=== PATIENT | female | born 1970 | race Caucasian/White ===

== ENCOUNTER 2024-01-30 01:09 | Inpatient (IN) | payer SELFPAY ==
[2024-01-29] MEDS: LEVOPHED 250 IV (23:40)
[2024-01-29 23:43] VITALS: BP 73/44
[2024-01-29 23:45] VITALS: BP 75/45
[2024-01-29 23:47] VITALS: BP 59/36
[2024-01-29 23:50] VITALS: BP 79/51
[2024-01-29 23:55] VITALS: BP 80/47
[2024-01-29 23:55] LABS: B.E. -21.9 mmol/L; O2 Saturation % 98.9 % (94-98); PCO2 60 mmHg (32-35); PO2 130 mmHg (83-108)
[2024-01-29 23:56] LABS: O2 Therapy 100%; pH 6.87 (7.35-7.45)
[2024-01-29 23:58] LABS: Urine Albumin 3+ (Neg - Trace); Urine Bilirubin Negative (Negative); Urine Character Slightly Cloudy (Clear); Urine Color Yellow; Urine Glucose Trace (Negative); Urine Ketone Trace (Negative); Urine Leukocyte Trace (Negative); Urine Nitrite Negative (Negative); Urine Occult Blood 3+ (Negative); Urine Urobilinogen Negative (Neg - 1+)
[2024-01-30] VITALS (30 sets, daily range): BP systolic 52–156; BP diastolic 23–142; BMI 20.2
[2024-01-30 00:03] LABS: Hemoglobin 9.7 g/dL (12.0-16.0); Mean Corp Hgb Conc. 34.6 g/dL (33.0-37.0); Mean Corpuscular Hgb 33.2 pg (27.0-31.0); Mean Corpuscular Volume 95.9 fL (81.0-99.0); Mean Platelet Volume 11.1 fL (7.4-10.4); Platelet Count 68 10^3/uL (130-400); Red Blood Cell Count 2.92 10^6/uL (4.20-5.40); Red Cell Dist. Width 12.2 % (11.5-14.5); White Blood Cell Count 2.2 10^3/uL (4.8-10.8)
[2024-01-30 00:06] LABS: Urine Bacteria Many (Negative); Urine Hyaline Cast 0-2 /LPF (0-2); Urine Squamous Cell 0-2 /LPF (Few)
--- NOTE | 2024-01-30 00:11 | ED.GENMED ---
History of Present Illness
General
Chief Complaint: CODE
Source: family (I have spoken with mother who arrives to the ED.) and ambulance crew
Exam Limitations: clinical condition
Time Seen by Provider: 01/29/24 23:43
History of Present Illness
History of Present Illness:
This is a 53-year-old woman with no significant past medical history, takes no medications on a daily basis, according to mom has been sick with URI symptoms, high fever, generalized weakness for the past 5 days. She has had a few loose stools,
poor oral intake. Mom has had similar URI symptoms but not to this severity. Patient has had progressive weakness and tonight collapsed, unresponsive and upon EMS arrival patient was in cardiac arrest with initial rhythm of asystole. CPR
reportedly initially begun by , ACLS protocol upon EMS arrival, IV established and after 1 mg of IV epinephrine ROSC achieved and has been persistent with sinus tachycardia with profound persistent hypotension. Patient has received 280 mcg
of push dose epinephrine prehospital as well as 1.5 L normal saline solution fluid bolus.
She remains obtunded/unresponsive. Orally intubated in the field.
Past History
Past History
ED Past Medical History: None
ED Past Surgical History: None
Social History
Tobacco: Non-smoker
Alcohol: Occasional
Drug: None
Personal:
Living: with family
Family History
Family History: Other (Noncontributory. No significant family past medical history.)
Phy Exam
Physical Exam
Physical Exam:
GENERAL: 53-year-old woman, small build, appears her stated age arrives via EMS, orally intubated. Obtunded. GCS of 3.
EYE: pupils equal and reactive. anicteric
NECK: Supple, no adenopathy.
ENT: Orally intubated.
CARDIAC: Regular rhythm, tachycardic at 140. no murmur.
LUNGS: Orally intubated, bagged�transition to assist-control ventilator. Scant rales right base otherwise lungs are clear to auscultation and equal breath sounds bilaterally.
ABDOMEN: Soft, nondistended, no palpable masses.
NEUROLOGICAL: Obtunded, GCS of 3. No spontaneous extremity movement.
SKIN: Warm and dry, normal color, skin intact. No rash.
MUSCULOSKELETAL: No C/C/E. Thready peripheral pulses. Palpable central pulses, equal bilaterally.
PSYCH: Not obtainable.
Sepsis
Sepsis Screening
Sepsis Assessment: Septic Shock
Sepsis Screening: Lactate >/=4mmol/L, Hypotension, ARF-Creatinine >2.0, Worsening O2 Saturation, Need for mechanical ventilation or BiPAP, Sustained Hypotension-SBP <90,MAP<65, or SBP decrease 40mmHg or more and Vasopressor support required
Sepsis Screen
Sepsis Screen: Septic Shock
Date: 01/30/24
Time: 06:08
Course
Orders/Labs/Results
Orders:
Orders
01/29/24 23:36
Cardiac Monitoring- Treatment ONCE
EKG- Treatment ONCE
Straight cath- Treatment ONCE
Pulse Ox/cont/shift [RESP] Urgent
Quantity: 1
Special Instructions: CONTINUOUS
01/29/24 23:37
NORepinephrine 4 MG/250 ML [Levophed] 4 mg in 250 ml .ROUTE .STK-MED
01/29/24 23:40
NORepinephrine 4 MG/250 ML [Levophed] 4 mg in 250 ml IV PER PROTOCOL
Initial dose in mcg/min, then titrate:: 10
Titrate to keep:: MAP > 65 mmHg
Titrate by mcg/min:: 1-2 mcg/min
Frequency of titrations (minutes):: 5
Maximum dose in ICU in mcg/min:: 30
Maximum dose in IMU in mcg/min:: 8
Maximum dose in IVU in mcg/min:: 4
Begin to taper infusion when:: Remained at goal for 4hrs
Taper by mcg/min:: 1-2 mcg/min
Frequency of taper (minutes) if patient maintains goal:: 30
Taper to off?: Yes
If infusion off & no longer maintaining goal:: Contact Provider
01/29/24 23:46
B-Hydroxybutyrate Urgent
Complete Blood Count/With Diff Urgent
Comprehensive Metabolic Panel Urgent
Lactic Acid Q4H
Comment: ON ICE, CANCEL 2ND ORDER IF FIRST LACTIC ACID LEVEL <2
Magnesium Urgent
Manual Differential Urgent
Troponin I Urgent
Urinalysis Reflex To Culture Urgent
Date Specimen was Collected: 01/29/24
Time Specimen was Collected: 23:36
Urine Microscopic Reflex Cult Urgent
Blood Culture Urgent
REYES Source: Blood/Venous
Specimen Description:
Blood Culture Urgent
REYSE Source: Blood/Venous
Specimen Description:
Date Specimen was Collected: 01/29/24
Time Specimen was Collected: 23:39
Influenza A+B Rapid Molecular Urgent
REYES Source: Nasal Swab
Specimen Description:
Date Specimen was Collected: 01/29/24
Time Specimen was Collected: 23:39
Urine Culture Urgent
REYES Source: U
Specimen Description:
Date Specimen was Collected: 01/29/24
Time Specimen was Collected: 23:36
01/29/24 23:47
ABG [Arterial Blood Gas] Urgent
%Oxygen/Room Air: 100
COVID-19 Antigen Urgent
Source: Nasal Swab
01/29/24 23:59
Sodium Bicarbonate 100 meq IV NOW STA
01/30/24 00:02
CR Chest Portable - 1 View Urgent
Reason For Exam: post code, intubated
Reason Study Needs to be Portable: Unable to Transport
01/30/24 00:07
Aztreonam [Azactam] 2,000 mg IV NOW STA
01/30/24 00:11
CT Head W/o Iv Contrast Urgent
Comment:
Reason For Exam: post cardiac arrest-VDRF, sepsis-obtunded
01/30/24 00:24
Ipratropium/Albuterol Sulfate [Duoneb] 3 ml INH R NOW ONE
01/30/24 00:27
Vancomycin [Vancocin] 1,500 mg 0.9% Sodium Chloride 500 ml [Nss] 500 ml IV NOW
01/30/24 00:28
Type And Crossmatch [Type+Screen] Urgent
01/30/24 00:37
Admit/Transfer Patient As Directed
Co-Sign Provider:
Level of Care: Inpatient admission
Assign to:: ICU
Physician / Group: hospitalist
Diagnosis: sepsis, arrest in the field
Reason for Hospitalization: cardiac arrest
Expected length of stay greater than two midnights?: Yes
ELOS- Estimated Length of Stay in days: 2
I certify the patient meets the requirements for IP care: Yes
ABO2 Urgent
BBK Wristband Number:
Associate notified that ABO2 has been ordered: [id number]
Date: 01/30/24
Time: 00:32
Chief Librarian Branch Or Department ID: [id number]
PRN Pain Medication Management As Directed
May give lesser potent ordered pain med per pt: Yes
preference::
Protocol:: Medication orders for pain may be administered in a
manner that supports deferring to patient preference
when the pt is:
- Requesting an ordered lesser potent pain medication.
Least to most potent pain medications are defined
as: acetaminophen < NSAID < tramadol < opioids
(morphine, oxycodone, hydromorphone).
- Requesting a lesser dose of the same medication IF
ORDERED.
- Requesting a less intrusive route of administration
if both routes are prescribed by the provider (PO <
IV).
01/30/24 00:38
Code Status As Directed
Resuscitation Status: Full Code
01/30/24 01:00
Flush (0.9% Sodium Chloride) [Flush (Nss)] See Dose Instructions IV PER PROTOCOL
01/30/24 01:15
Vasopressin 20 Units/100 ml [Pitressin] 20 units in 100 ml IV PER PROTOCOL
Initial dose in units/min, then titrate:: 0.03
Titrate to keep:: MAP > 65 mmHg
Titrate by units/min:: 0.005 units/min
Frequency of titrations (minutes):: 10
Maximum dose in units/min:: 0.1
Begin to taper infusion when:: Remained at goal for 8hrs
Taper by units/min:: 0.005 units/min
Frequency of taper (minutes) if patient maintains goal:: 60
Taper to off?: Yes
If infusion off and no longer mantaining goal:: Contact Provider
01/30/24 02:14
Blood Culture Q30M
REYES Source: Blood/Venous
Specimen Description:
Acetaminophen [Tylenol/Feverall] 650 mg RECTAL Q4HPRN PRN
Acetaminophen [Tylenol] 650 mg PO Q4HPRN PRN
Dextrose 5%/Water 1000 ml [D5w] 1,000 ml Sodium Bicarbonate 150 meq IV 100 mls/hr
NORepinephrine 4 MG/250 ML [Levophed] 4 mg in 250 ml IV PER PROTOCOL
Currently infusing. Continue current dose and titrate:: Yes
Titrate to keep:: MAP > 65 mmHg
Titrate by mcg/min:: 1-2 mcg/min
Frequency of titrations (minutes):: 5
Maximum dose in ICU in mcg/min:: 30
Maximum dose in IMU in mcg/min:: 8
Maximum dose in IVU in mcg/min:: 4
Begin to taper infusion when:: Remained at goal for 4hrs
Taper by mcg/min:: 1-2 mcg/min
Frequency of taper (minutes) if patient maintains goal:: 30
Taper to off?: Yes
If infusion off & no longer maintaining goal:: Contact Provider
Ondansetron Injectable [Zofran] 4 mg IV Q6HPRN PRN
VANCOMYCIN Pharmacy to Dose [VANCOCIN Pharmacy to Dose] 1 each Pharmacy To Prepare [Call Pharmacy To Prepare] 0 ml IV PER PROTOCOL
01/30/24 02:14
Echo 2D MMode Color/Doppler Routine
Reason for Study: cardiac arrest
CARDIOLOGY CONSULT Routine
Consulting Provider: Mars Martínez
Was physician already notified: No
Reason for consult: cardiac arrest, flu A sepsis.
Consult Notification Routine
Specialty to Notify: Cardiology
Consult Notification Routine
Specialty to Notify: Infectious Disease
Consult Notification Routine
Specialty to Notify: refer to Physician Consult order
INFECTIOUS DISEASE CONSULT Routine
Consulting Provider: Javier James
Was physician already notified: No
Reason for consult: Influenza A, sepsis
PHYSICIAN CONSULT Routine
Consulting Provider: Wesley Jaramillo
Was physician already notified: No
Reason for consult: influenza a, sepsis, ards suspected
Activity As Directed
Activity Level: With Assistance
Intake/ Output As Directed
Frequency: Per unit guidelines
Vital Signs As Directed
Frequency: Per unit guidelines
Pulse Ox/cont/shift [RESP] Routine
Quantity: 1
Special Instructions: continuous pulse ox
Ventilator Initial Settings [RESP] Routine
Inspiratory Pressure above PEEP: 10
Rate: 18
Inspiratory Time or I:E Ratio: 1.5
FIO2: 100
PEEP: 10
DX Deep Vein Thrombosis Video Routine
01/30/24 02:44
Blood Culture Q30M
REYES Source: Blood/Venous
Specimen Description:
01/30/24 02:45
Oseltamivir [Tamiflu] 30 mg PO ONCE ONE
01/30/24 03:53
Complete Blood Count/No Diff IN AM
Comprehensive Metabolic Panel IN AM
Cortisol, Random IN AM
Glycohemoglobin (HgbA1c) IN AM
Lactic Acid Q4H
Comment: ON ICE, CANCEL 2ND ORDER IF FIRST LACTIC ACID LEVEL <2
Troponin I Q6H
01/30/24 08:00
Heparin 5,000 units SC Q8
Pantoprazole [Protonix IV] 40 mg IV DAILY
01/30/24 11:00
Troponin I Q6H
01/30/24 14:00
Cefepime HCl [Maxipime] 2,000 mg IV Q12H
01/30/24 17:00
Troponin I Q6H
01/30/24 22:00
Oseltamivir Phosphate [Tamiflu] 30 mg PO HS
Abnormal Lab Results
01/29/24 01/29/24
23:46 23:47
WBC 2.2 L* 10^3/uL
(4.8-10.8)
RBC 2.92 L 10^6/uL
(4.20-5.40)
Hgb 9.7 L g/dL
(12.0-16.0)
Hct 28.0 L %
(37.0-47.0)
MCH 33.2 H pg
(27.0-31.0)
Plt Count 68 L 10^3/uL
(130-400)
MPV 11.1 H fL
(7.4-10.4)
Abs Neuts (Manual) 1.0 L 10^3/uL
(1.4-6.5)
Segmented Neutrophils 34 L %
(42-75)
Band Neutrophils 12 H %
(0-3)
pH 6.87 L*
(7.35-7.45)
pCO2 60 H mmHg
(32-35)
pO2 130 H mmHg
(83-108)
HCO3 11.0 L* mmol/L
(21-28)
ABG O2 Sat (Measured) 98.9 H %
(94-98)
Sodium 130 L mmol/L
(135-145)
Carbon Dioxide 11 L* mmol/L
(22-30)
BUN 34 H mg/dl
(7-17)
Creatinine 2.2 H mg/dL
(0.6-1.0)
Glucose 142 H mg/dl
(70-99)
Lactic Acid 15.2 H* mmol/L
(0.7-2.0)
Calcium 6.1 L* mg/dl
(8.4-10.2)
AST 166 H U/L
(14-36)
ALT 71 H U/L
(0-35)
Alkaline Phosphatase 28 L U/L
(38-126)
Troponin I 0.198 H* ng/ml
Total Protein 4.3 L g/dl
(6.3-8.2)
Albumin 1.7 L g/dl
(3.5-5.0)
Urine Ketones Trace A
(Negative)
Ur Occult Blood Reflex 3+ A
(Negative)
Leukocyte Esterase Rfl Trace A
(Negative)
Urine RBC 7-10 A /HPF
(0-2)
Urine Bacteria (Reflex) Many A
(Negative)
Urine Glucose Trace A
(Negative)
Urine Albumin (Reflex) 3+ A
(Neg - Trace)
01/29/24 23:46
01/29/24 23:46
Vital Signs
Initial and Last Documented VS:
Initial Vital Signs
BP
73/44
01/29/24 23:43
Last Documented Vital Signs
Temp Pulse Resp BP Pulse Ox
95.9 F L 149 19 68/35 93
01/30/24 03:23 01/30/24 03:40 01/30/24 03:40 01/30/24 03:40 01/30/24 03:07
Procedures
Central Line
Right Femoral:
Indication for procedure:: Central line access for criti-cool protocol
Procedure completed by: myself
Consent form signed: No
If no, reason: Emergency procedure (verbal permission obtained from and pt's mother)
Central line lumen: triple
Number of attempts: 1
Central line complications: none
Sterile dressing applied?: Yes
MDM/Problems Addressed
Differential Diagnosis Includes:
Concern for severe sepsis, septic shock, acute kidney injury, pneumonia, electrolyte abnormality, ACS, anoxic encephalopathy is also a concern.
Will initiate IV Levophed, continue IV fluids. Sepsis panel labs, ABG, flu and COVID testing if these are negative will do respiratory viral panel testing, blood cultures. EKG.
If we are able to stabilize will consider CT and consider critical however I suspect a sepsis and severe dehydration issue as cause for cardiopulmonary collapse.
Will continue IV fluids for total of 3 L normal saline.
IV Levophed with goal MAP of 65.
Will plan for broad-spectrum IV antibiotics.
*Radiology
Radiology exam reviewed: preliminary read by ED provider (Chest x-ray shows extensive fluffy bilateral infiltrates with right lower lobe effusion. ET tube at ganesh. Will adjust, withdrawal 2 cm.)
*Pulse Oximetry
Patient hypoxic: yes
*EKG
Interpreted by ED Provider?: Yes
Interpretation: abnormal
Comparison EKG: no comparison EKG present
Rate: tachycardiac
Rhythm: sinus
Marked Tree: normal axis
Interval: normal interval
QRS Pattern: normal QRS
Ischemia: ST depression (Diffuse ST depression)
*Stage Director Interpretation
Rate: tachycardiac
Interpretation: abnormal
Rhythm: sinus
*Critical Care Note
Total Time (30-74mins, 75-104mins- exclusive of procedures): 70
comment:
Critical care statement: A total of 70 minutes of critical care time was provided for this patient. This includes management of unstable vital signs, evaluation of the patient at bedside, reviewing the patient's pertinent medical records, discussion
with consultants, review of old EKGs and review of pertinent medical records. This time with separate from time utilized to perform the aforementioned documented procedures
Update Note
Update Note:
Blood pressure has improved with IV Levophed currently at 15 mcs per minute.
Multiple severe abnormal laboratory studies including pancytopenia. Influenza A is positive. COVID testing is negative.
Chest x-ray shows extensive bilateral pulmonary infiltrates, right lower lobe effusion, concerning for ARDS
ABG reveals severe metabolic acidosis accompanied with mild to moderate respiratory acidosis. Treated with 2 A of IV bicarb and ventilator respiratory rate increased from 16-18.
Initial pulse ox 100% has been drifting down to 91%. Will give DuoNeb nebulizer and if PIP and blood pressure can handle it will titrate PEEP as needed.
Broad-spectrum IV antibiotics initiated. Hemoglobin of 9.7, patient typed and screened as I suspect this will drop with IV fluid resuscitation.
Patient remains critically ill. Family at bedside and updated.
Hospitalist notified.
ED Attending Note
-
Portions of this chart may have been created with voice recognition software.� Occasional wrong word or��sound alike� substitutions may have occurred due to the inherent limitations of voice recognition software.
Discharge Plan
Departure
Patient Disposition: Admit
Date of Disposition: 01/30/24
Time of Disposition: 00:32
Admit to: ICU
Admit to doctor: Ida
Presentation/result/management discussed w/ accepting MD/DO: Hospitalist
Condition: Critical
Covid-19: Negative COVID-19
Discharge Problem:
s/p cardiac arrest with ROSC, Severe sepsis with acute organ dysfunction, Influenza A, Pancytopenia, Adult respiratory distress syndrome, Respiratory disorder with ventilator dependence
Interventions
Interventions:
*Risk Screen - Suicide Last Done: 01/30/24 01:06
*General Assessment Last Done: 01/30/24 02:29
*Neglect/Abuse Screening Last Done: 01/30/24 02:29
*ED COVID-19 Vaccine History Last Done: 01/30/24 02:29
*Nursing Disposition Last Done: 01/30/24 02:29
ED- Cardiac Assessment Last Done: 01/30/24 01:01
ED- Pulmonary Assessment Last Done: 01/30/24 01:01
Discharge Date and Time
Discharge Date/Time: 01/30/24 02:30
[2024-01-30] MEDS: SODIUM BICARBONATE 100 MEQ IV (00:13)
[2024-01-30 00:15] LABS: COVID-19 Antigen Negative (Negative)
[2024-01-30] MEDS: AZACTAM 2000 MG IV (00:15)
[2024-01-30 00:19] LABS: Lactic Acid 15.2 mmol/L (0.7-2.0)
[2024-01-30 00:21] LABS: Troponin I 0.198 ng/ml
[2024-01-30] MEDS: DUONEB 3 ML INH (00:27)
[2024-01-30 00:29] LABS: AST (SGOT) 166 U/L (14-36); Albumin 1.7 g/dl (3.5-5.0); Alkaline Phosphatase 28 U/L (38-126); Blood Urea Nitrogen 34 mg/dl (7-17); Calcium 6.1 mg/dl (8.4-10.2); Carbon Dioxide 11 mmol/L (22-30); Chloride 99 mmol/L (98-107); Glucose 142 mg/dl (70-99); Magnesium 2.2 mg/dl (1.6-2.3); Potassium 3.7 mmol/L (3.5-5.1); Sodium 130 mmol/L (135-145); Total Bilirubin 0.2 mg/dl (0.2-1.3); Total Protein 4.3 g/dl (6.3-8.2); eGFR 26.15
[2024-01-30 00:31] LABS: Atypical Lymphocytes 8 %; Band Neutrophils 12 % (0-3); Lymphocytes 42 % (20-51); Monocytes 4 % (2-9); Segmented Neutrophils 34 % (42-75)
[2024-01-30 00:32] LABS: Normal RBC Morphology Yes; Platelets Checked Yes; Total Cells Counted 100; Toxic Granulation 1+; Vacuolated Segs 1+
[2024-01-30] MEDS: VANCOCIN 530 MG IV (00:33)
[2024-01-30 00:35] LABS: ALT (SGPT) 71 U/L (0-35)
[2024-01-30] MEDS: CALCIUM GLUCONATE 1000 MG IV (01:18)
[2024-01-30] MEDS: SODIUM BICARBONATE 50 MEQ IV ×2 (02:26)
[2024-01-30] MEDS: NEO-SYNEPHRINE 250 IV (02:27)
--- NOTE | 2024-01-30 02:30 | W.PN.UPDATE ---
Update Note
Progress Note Update
Operation/Procedure: right radial arterial line placement
Consent for operation or procedure: Emergent need due to patient condition - need for invasive monitoring per protocol
Indications: Hemodynamic monitoring
After properly positioning the patient's wrist in the standard fashion, the site was prepped and draped in a sterile fashion. The radial artery was entered, noting bright red, pulsatile flow. A guidewire was easily inserted, the needle removed, and
the catheter was then placed using the Seldinger technique. The guidewire was removed, with good flow present. The catheter was then connected to the transducer with a good waveform noted. The catheter was secured with an occlusive dressing was
placed after properly cleaning and prepping the site.
Complications: The patient tolerated the procedure well and no complications were noted.
Estimated Blood Loss: minimal
Plan: Arterial line to remain in place for hemodynamic monitoring.
[2024-01-30] MEDS: PITRESSIN 100 IV (02:42)
[2024-01-30] MEDS: VERSED 5 MG IV (02:42)
[2024-01-30] MEDS: SUBLIMAZE 100 IV (02:51)
[2024-01-30] MEDS: SODIUM BICARBONATE 1150 MEQ IV (03:00)
--- NOTE | 2024-01-30 03:00 | W.PN.SEPSIS ---
Sepsis
Vital Signs
Temp Pulse Resp BP Pulse Ox
95.9 F L 149 19 68/35 93
01/30/24 03:23 01/30/24 03:40 01/30/24 03:40 01/30/24 03:40 01/30/24 03:07
Physical Exam
Physical Exam:
A focused exam was performed after fluid resuscitation.
Capillary Refill
Bilateral Upper Extremity:
Primitivo Time: Less than 3 sec
Bilateral Lower Extremity:
Primitivo Time: Less than 3 sec
Pulse Evaluation
Bilateral Radial:
Pulse Evaluation: Present
Bilateral Dorsalis Pedis:
Pulse Evaluation: Present
[2024-01-30 03:15] LABS: Glucose - Point of Care 155 mg/dl (70-99)
[2024-01-30 03:32] LABS: B.E. -14.5 mmol/L; HCO3 17.9 mmol/L (21-28); O2 Saturation % 53.8 % (94-98)
[2024-01-30 03:35] LABS: O2 Therapy VENT; PO2 38 mmHg (83-108)
[2024-01-30 03:36] LABS: PCO2 71 mmHg (32-35); pH 7.01 (7.35-7.45)
[2024-01-30 04:09] LABS: Hematocrit 43.1 % (37.0-47.0); Hemoglobin 14.5 g/dL (12.0-16.0); Mean Corp Hgb Conc. 33.6 g/dL (33.0-37.0); Mean Corpuscular Hgb 31.9 pg (27.0-31.0); Mean Corpuscular Volume 94.9 fL (81.0-99.0); Mean Platelet Volume 12.1 fL (7.4-10.4); Platelet Count 58 10^3/uL (130-400); Red Blood Cell Count 4.54 10^6/uL (4.20-5.40); Red Cell Dist. Width 12.6 % (11.5-14.5)
[2024-01-30 04:27] LABS: B.E. 2.4 mmol/L; HCO3 33.2 mmol/L (21-28); O2 Saturation % 83.1 % (94-98); O2 Therapy VENT; Potassium 4.6 mMOL/L (3.5-5.1)
[2024-01-30 04:28] LABS: Ionized Calcium 2.93 mMOL/L (1.15-1.33); PCO2 89 mmHg (32-35); PO2 57 mmHg (83-108); pH 7.18 (7.35-7.45)
[2024-01-30 04:30] LABS: PT 28.7 Sec (11.4-14.6)
[2024-01-30 04:38] LABS: Lactic Acid 12.1 mmol/L (0.7-2.0); NT-proBNP 9090 pg/ml; Troponin I 0.471 ng/ml
[2024-01-30 04:43] LABS: ALT (SGPT) 134 U/L (0-35); AST (SGOT) 461 U/L (14-36); Albumin 1.9 g/dl (3.5-5.0); Alkaline Phosphatase 38 U/L (38-126); Blood Urea Nitrogen 34 mg/dl (7-17); Carbon Dioxide 15 mmol/L (22-30); Chloride 100 mmol/L (98-107); Estimated Creatinine Clearance 25 ml/min; Glucose 148 mg/dl (70-99); Magnesium 2.6 mg/dl (1.6-2.3); Phosphorus 7.8 mg/dl (2.5-4.5); Sodium 133 mmol/L (135-145); Total Bilirubin 0.8 mg/dl (0.2-1.3); Total Protein 4.9 g/dl (6.3-8.2); eGFR 24.79
--- NOTE | 2024-01-30 05:07 | W.PN.DEATH ---
Pronouncement of
-
Called to see patient to pronounce.
No spontaneous heart tones or respirations noted.
Patient not responsive to verbal stimuli.
Patient is pronounced .
Time of : 04:36
Date of : 01/30/24
Cause of : acute hypoxemic respiratory failure, influenza A
Family Notified: Yes (family notified and present at time of )
--- NOTE | 2024-01-30 05:13 | W.PN.UPDATE ---
Update Note
Progress Note Update
0215 Patient upon receiving from the ER was hypotensive, was on levophed gtt (maxed at 30). Added sharyn synephrine and vasopressin for hypotension. Plateau pressures 24, patient suctioned for white secretions, given versed and fentanyl for sedation
to help with ventilation. Arterial line placed in right wrist. Abg obtained and noted to be respiratory and metabolic acidosis, pH 7.01 pCO2 71, PO2 38, HCO3 17.9. Reviewed case with Dr. Jaramillo, director learning recommendations given for
ARDS/influenza: change ventilator settings to minute ventilation TV 450 and rate 28, stress dose hydrocortisone for hypotension/shock, Flolan for hypoxemia via ventilator, nimbex prn for ventilator synchrony, and add epinephrine gtt for additional
vasopressor and if needed Angiotensin II/Giapreza.
Patient hypotension started to worsen, arterial line dampening, maxed on levophed/sharyn/vasopressin/epinephrine gtts, heart rate rapid Afib 120s started slowing. Code 9 was called at 0355 for PEA, see code 9 sheet for full resuscitation details
(multiple rounds epi, bicarb, calcium were given). Hospitalist Dr. Chidi Prieto, at bedside, case reviewed. Also present for code House CRNPs and CVICU PAMaynor Blount. [place]/blood frothy secretions noted in patient's ETT, probably pulmonary
edema vs alveolar hemorrhage, contributing to hypoxia and difficulty ventilating. Patient did regain pulse back briefly for few minutes and code 9 was called again. Family patient's mother was talked to by Dr. Prieto and all questions answered,
overall poor prognosis with anoxia demonstrated on head Ctscan and continued anoxia due to PEA arrest and now prolong downtime. Full resuscitation efforts were exhausted and code was called at 0436 (time of ).
--- NOTE | 2024-01-30 05:20 | PTCARENOTE ---
assumed care of pt from ED, pt came to ICU max'd on levo and abx hung, unresponsive not withdrawing to pain, sinus tach on the monitor, ETT #7 AC 30/300/10/100 SpO2 93%, coarse ronchi crackles throughout, 0250 TTM started pt was @ temp the time TTM
was initiated, sharyn and vaso added and max'd, fent gtt started, A-line started by provider, pt tachycardic and and SBP in 30's, CPR started refer to code sheet, family updated and pt was pronounced @ 0436. Room cleaned up and made presentable for
family to pay their wishes, mother and friend of family @ bedside and emotional support provided, GOL called and mother requested daughter be held until she could return home speak to pts to see if he would want to visit her.
[2024-01-30 05:28] LABS: Total CK 11441 U/L (30-135)
--- NOTE | 2024-01-30 07:30 | HPS.HSE ---
Family Physician
-
Family Physician: * NONE
Chief Complaint
-
Cardiac Arrest in the Field
History of Present Illness
This is a 53 y.o female with no known past medical history brought to ED via EMS for cardiac arrest in the field.
Per family members, patient had a respiratory illness with high fevers, cough, congestion for about 5 days. She has had a few loose stools, poor oral intake. She tested negative for COVID at home. Family members has had similar URI symptoms but
not to this severity. She became progressively weaker and collapsed tonight. Spouse who has h/o PD called emergency and EMS arrived to find the patient in cardiac arrest and initial rhythm was asystole. CPR was started by spouse.
EMS provided mg of IV epinephrine with achievement of ROSC and sinu tachycardia. She was intubated in the field and she received 280mcg dose of epinephrine and 1.5 L of normal saline. She remained unresponsvie on arrival in ED.
In ED she was in respiratory distress and unresponsive. Initial resuscitation with IV fluid boluses given in ED. Notable w/u in ED was positive for influenza A, bilateral infiltrates on xray, severe mixed metabolic and respiratory acidosis, lactic
acidosis of 15. She was satting low to mid 90s on 100% FIO2. CT head showed bilateral edema without evidence of herniation or midline shift.
Medical History
Past Medical History
Past Medical History: Reports None
Past Surgical History: Reports None
Social History
Tobacco: Non-smoker
Alcohol: None
Drug: None
Personal:
Living: With Family
Family History
Family History: Not pertinent
Allergies / Home Medications
Allergies reflects when Allergies were last updated in [facility].
Home Medications with original date entered in [facility]
Allergy/Medication List:
Allergies
Allergy/AdvReac Type Severity Reaction Status Date / Time
Penicillins Allergy Unknown Verified 01/29/24 23:58
NONE
If medication reconciliation has not been performed, why?: Unresponsive
Review of Systems
-
Unable to obtain full review of systems at this time due to: Patient Intubation
Physical Exam
Vital Signs
Vital Signs
Temp Pulse Resp BP Pulse Ox
95.9 F L 149 19 68/35 93
01/30/24 03:23 01/30/24 03:40 01/30/24 03:40 01/30/24 03:40 01/30/24 03:07
Physical Exam
General: Well Developed and Intubated
HEENT: NormoCephalic, Anicteric, Moist mucous membranes and Atraumatic
Respiratory: Crackles
Cardiac: S1/S2 and Tachycardia
Breast: Deferred by me
GI: Soft, Non Tender and Non Distended
Rectal: Deferred by Provider
Genito-urinary: Deferred by me
Musculoskeletal: No Clubbing, No Cyanosis and No Edema
Neuro: Other (obtunded.)
Hematologic/Lymphatic: No Lymphadenopathy
Laboratory Results
-
Laboratory Results
PT 28.7 Sec (11.4-14.6) H 01/30/24 03:53
INR 2.70 01/30/24 03:53
APTT Cancelled 01/30/24 03:53
pH 7.18 (7.35-7.45) L* 01/30/24 04:14
pH Cancelled 01/30/24 04:14
pCO2 89 mmHg (32-35) H* 01/30/24 04:14
pCO2 Cancelled 01/30/24 04:14
pO2 57 mmHg (83-108) L* 01/30/24 04:14
pO2 Cancelled 01/30/24 04:14
HCO3 33.2 mmol/L (21-28) H 01/30/24 04:14
HCO3 Cancelled 01/30/24 04:14
Lactic Acid 12.1 mmol/L (0.7-2.0) H* 01/30/24 03:53
Total Bilirubin 0.8 mg/dl (0.2-1.3) 01/30/24 03:53
Total Bilirubin Cancelled 01/30/24 03:53
AST 461 U/L (14-36) H 01/30/24 03:53
AST Cancelled 01/30/24 03:53
ALT 134 U/L (0-35) H 01/30/24 03:53
ALT Cancelled 01/30/24 03:53
Alkaline Phosphatase 38 U/L (38-126) 01/30/24 03:53
Alkaline Phosphatase Cancelled 01/30/24 03:53
Troponin I 0.471 ng/ml H* D 01/30/24 03:53
Troponin I Cancelled 01/30/24 03:53
Data Reviewed
-
Diagnostic Radiology: Image Personally Visualized and interpreted
CT Scan: Report Reviewed by me
Medical Tests (Nuc Med, Echo, EKG etc): Image Personally Visualized and interpreted
Lab Data: Labs Reviewed by me
Impression/Plan
-
IMPRESSION:
53 y.o with no known past medical history presenting from home s/p cardiac arrest after 5 days of high fevers, cough, congestion and some diarrhea with progressive weakness in that time. Found to have influenza A, ARDS and Shock. Suspect Severe
influenza infection with possible bacterial pneumonia and PEA arrest at home secondary to hypotension or hypoxia.
ARDS -
- suspect secondary to flu A
- initial management on the ventilator per ARDSnet
- d/w ICU and transferred to ICU for sedation, paralysis, pronining, flolan
- discussed ECMO if patient doesn't improve after initial Vent trial however she decompensated rapidly
- initial correction of acidosis and hypocalcemia with bicarb pushes and calcium gluconate.
Sepsis - given cardiac arrest, possibly cardiogenic shock versus septic shock. Trop was only 0.2 without acute ischemia on ecg
- broad spectrum abx
- tamiflu
- central line placed, pressors
- ID consultation
PEA arrest
- cooling measure to 36
- CT head with repeat in 6 hours
- pressors to maintain map
- EEG
- neuroconsult
Technician [employer] was consulted and involved with the plan of management.
Patient had increasing oxygen and pressor requirements. She had a second PEA arrest at 3:55 am. ROSC achieved temporarily at 4:10 am but went back into PEA arrest till 4:36 am when further CPR terminated.
Patient's mother was notified. Door Assembler called.
--- NOTE | 2024-01-30 08:26 | W.DCSUMMARY ---
Discharge Summary
Discharge Data
Date of Admission: 01/30/24
Date of Discharge: 01/30/24
-
Pending Results: No
Hospital Course
Patient is a 53-year-old female with no known significant past medical history was brought into the emergency department following cardiac arrest at home. She has had about 5 days of severe illness including fevers, cough, weakness and diarrhea.
Spouse had started CPR at home. EMS arrived to finder her in asystole, gave epinephrine to achieve ROSC, and additonal epinephrine given to maintain pulse with 1.5 L of NS bolus given en-route to ED. She was orally intubated and arrived in ED
obtunded. Had severe hypoxia and mixed respiratory and metabolic acidosis. Xray notable for bilateral infiltrates. Picture was consistent with ARDS. Research Editor consultation and provided recommendations for management of ventilation and
oxygenation. Had fluid resuscitation with 30ml/kg NS. Broad spectrum antibiotics, antiviral and pressors. Electrolytes and acid base corrected with calcium gluconate, bicarb pushes and bicarb gtt. CT head showed early bilateral edema without
herniation, there was still martinez/white differentiation.
Patient was intermittently bagged to maintain oxygenation. She was given nebs. We transferred her to ICU for proning. Oxygenation remained tenuous. Pressor requirements increased to 4 pressors. She developed PEA arrest at 3:55 am and underwent
CPR till around 410 am with transient establishment of ROSC but then had another PEA arrest with termination of CPR at 436 AM. Patient at that time. Family at bedside and notified. Requested knitted garment finisher for family.
Discharge Plan
-
Patient Disposition:
Referrals:
NONE,* [Family Provider] -
Discharge Date and Time
Print Language: DANISH
--- NOTE | 2024-01-30 08:31 | CHAP ---
Called at 4:53, arrived at 5:50 to find family had left. Available if they return or if they want to view the body in the viewing room.
--- NOTE | 2024-01-30 09:07 | PTCARENOTE ---
Michael and Olinda DICKINSON both notified the [employer] Teacher's office regarding her . Message left with [employer] service. Family not present and not coming back to the hospital. Pt sent to [facility] with all IV accesses, indwelling georges catheter,
NGT & ETT in place.
[2024-01-30 09:58] LABS: Glycohemoglobin (HgbA1c) 5.4 % (4.0-5.6)
== END 2024-01-30 04:36 | disposition expired | DRG 296 ==
LOC: ICU 01:09
PROVIDERS: Internal Medicine Critical Care Medicine; Nurse Practitioner Family; ADMITTING PHYSICIAN Internal Medicine; EMERGENCY PHYSICIAN Emergency Medicine
DX: I46.9 Cardiac arrest, cause unspecified (principal); A41.9 Sepsis, unspecified organism; J80 Acute respiratory distress syndrome; E87.4 Mixed disorder of acid-base balance; R57.9 Shock, unspecified; Z11.52 Encounter for screening for COVID-19; J10.1 Influenza due to other identified influenza virus with other respiratory manifestations
CPT/HCPCS: 36556; 36600; 51701; 70450; 71045; 80053; 81003; 81015; 82010; 82330; 82533; 82550; 82805; 82962; 83036; 83605; 83735; 83880; 84100; 84132; 84134; 84145; 84484; 85025; 85027; 85610; 86850; 86900; 86901; 87040; 87086; 87147; 87205; 87252; 87502; 87811; 94002; 94640; 96374; 96375; 99291; J1325